=== PATIENT | female | born 1985 | race Caucasian/White ===

== ENCOUNTER 2017-11-17 09:33 | Emergency (ER) | payer MEDICAID ==
[~2017-11-17] VITALS: Ht 167.6 cm; Wt 89.8 kg
[2017-11-17 10:19] VITALS: BP 145/98
[2017-11-17 10:29] LABS: BASOPHILS % (AUTO) 0.6 % (0.0-2.0); EOSINOPHILS % (AUTO) 5.1 % (0.0-3.0); HEMATOCRIT 39.4 % (37.0-47.0); HEMOGLOBIN 13.3 G/DL (12.0-16.0); LYMPHOCYTES % (AUTO) 21.5 % (20.0-45.0); MEAN CORPUSCULAR VOLUME 87 FL (80-99); NEUTROPHILS % (AUTO) 68.8 % (45.0-75.0); PLATELET COUNT 317 K/UL (150-450); RED BLOOD COUNT 4.52 M/UL (4.20-5.40); RED CELL DISTRIBUTION WIDTH 12.7 % (11.6-14.8); WHITE BLOOD COUNT 8.5 K/UL (4.8-10.8)
[2017-11-17 10:41] LABS: APPEARANCE,URINE CLEAR; BILIRUBIN, URINE NEGATIVE (NEGATIVE); GLUCOSE, URINE (UA) NEGATIVE (NEGATIVE); KETONES,URINE NEGATIVE (NEGATIVE); LEUKOCYTE ESTERASE ,URINE 1+ (NEGATIVE); NITRITE,URINE NEGATIVE (NEGATIVE); PH,URINE 6 (4.5-8.0); PROTEIN,URINE 3+ (NEGATIVE); UROBILINOGEN,URINE NORMAL MG/DL (0.0-1.0)
--- NOTE | 2017-11-17 10:45 | Diagnostic Imaging Report ---
Indication: Shortness of breath Technique: XRAY Chest 1v Comparison: None. Findings: The cardiomediastinal silhouette is normal. The lungs are clear. There is no evidence of pleural fluid. The bones are unremarkable. Impression: Normal chest.
[2017-11-17 10:48] LABS: COLOR,URINE YELLOW
[2017-11-17 10:52] LABS: ANION GAP 5 mmol/L (5-15); BLOOD UREA NITROGEN 10 mg/dL (7-18); CALCIUM 8.6 MG/DL (8.5-10.1); CARBON DIOXIDE 30 MMOL/L (21-32); CHLORIDE 104 MMOL/L (98-107); CREATININE 0.7 MG/DL (0.55-1.30); POTASSIUM 4.5 MMOL/L (3.5-5.1); SODIUM 139 MMOL/L (136-145)
[2017-11-17 11:01] LABS: ALANINE AMINOTRANSFERASE 37 U/L (12-78); ALBUMIN 3.5 G/DL (3.4-5.0); ALBUMIN/GLOBULIN RATIO 0.9 (1.0-2.7); ALKALINE PHOSPHATASE 80 U/L (46-116); ASPARTATE AMINO TRANSFERASE 23 U/L (15-37); BILIRUBIN,TOTAL 0.2 MG/DL (0.2-1.0)
[2017-11-17] MEDS ORDERED: Vancomycin 1 GM in D5W 275 ML IVPB ONE (14:00)
[2017-11-17] MEDS ORDERED: Vancomycin 1gm inj IVPB ONE (14:39)
[2017-11-17 15:58] VITALS: BP 124/62
--- NOTE | 2017-11-17 16:20 | Emergency Room Report ---
History of Present Illness General Chief Complaint: Overdose Source: Patient Present Illness HPI The patient presents after heroin overdose. Apparently the boyfriend performed CPR on the patient for about 4 minutes before paramedics arrived. Narcan was given and the patient became responsive at that time. They state she was cyanotic and hypoxemic at the time. The patient woke up. She's states she feels flushed but denies any pain at this time. She's recently been evaluated for edema of her feet. This involved a CT angiogram when she had some shortness of breath. This was negative. Also she had an echocardiogram done with blood cultures looking for subacute bacterial endocarditis. She does know the results of that evaluation but has not been treated with antibiotics. In addition she's had noninvasive vascular studies of her legs that have been negative for DVT. This happened over several hospitalizations at different places in the [facility] including [place] and [facility]. Recently she was given a prescription of prednisone for the "swelling" in her feet. She's not taking a diuretic at this time. Because of the swelling in the right foot there is a break in the skin. She has some pain and some redness in the lower extremity there. She denies any calf tenderness. The patient admits to cocaine and meth. She does not use heroin every day. + h/o anxiety. Denies Hepatitis C or HIV. Allergies: Coded Allergies: ASPIRIN (Verified Allergy, Unknown, 11/17/17) PENICILLINS (Verified Allergy, Unknown, 11/17/17) Uncoded Allergies: EGGPLANT (Allergy, Unknown, 11/17/17) Patient History Past Medical History: see triage record Social History: Reports: smoking, alcohol use, drug use Social History Narrative with boyfriend Last Menstrual Period: 11/11/17 Now: No : 2 Para: 1 Reviewed Nursing Documentation: PMH: Agreed, PSxH: Agreed Nursing Documentation-PMH Past Medical History: No Stated History Review of Systems All Other Systems: negative except mentioned in HPI Physical Exam Vital Signs Date Time Temp Pulse Resp B/P (MAP) Pulse Ox O2 Delivery O2 Flow Rate FiO2 11/17/17 09:15 97.5 114 16 152/97 97 Room Air 97.5 Sp02 EP Interpretation: reviewed, normal General Appearance: well appearing, no apparent distress, GCS 15, obese Head: normocephalic Eyes: bilateral eye normal inspection, bilateral eye PERRL - 3 mm, bilateral eye EOMI ENT: moist mucus membranes Neck: supple Respiratory: lungs clear, normal breath sounds Cardiovascular #1: regular rate, rhythm Cardiovascular #2: 2+ radial (R) Gastrointestinal: normal inspection, normal bowel sounds, non tender, no mass, non-distended Musculoskeletal: back normal, gait/station normal, normal range of motion Neurologic: alert, oriented x3, motor strength/tone normal, DTRs symmetric, sensory intact, speech normal Psychiatric: anxious Skin: warm/dry, other - erythema R lower leg with lesion dorsum of foot Medical Decision Making Diagnostic Impression: Primary Impression: Heroin overdose Qualified Codes: T40.1X1A - Poisoning by heroin, accidental (unintentional), initial encounter Additional Impressions: Cellulitis of right leg Substance abuse Pedal edema ER Course Patient presents after heroin overdose. Differential includes aspiration, heroin excess, rhabdomyolysis, renal failure, cardiac injury. The patient has a nonfocal neurologic exam at this time therefore CT is not indicated and anoxic brain damage is excluded. The patient needs to be observed as she received Narcan make sure that she doesn't deteriorate again. To be treated with IV hydration. Evaluation with labs, EKG, CXR. EKG without injury. Chest x-ray no infiltrates. Labs with multiple substances positive on the tox a. White count is normal. Troponin negative. The patient still sleepy but has not required more Narcan. Discussion is undertaken regarding edema and also the erythema the right lower leg. This appears cellulitic at this time. There is no evidence of any calf tenderness right now. Due to the leg edema with the negative BNP congestive heart failure is a less likely. However excluding subacute bacterial endocarditis is significant. The patient was discussed with Dr. Crain at [facility] who accepted the patient in transfer. Blood cultures were done. Vancomycin was started here. The patient threatened to sign out AMA but was convinced to be transferred for further care. Laboratory Tests Test 11/17/17 10:20 11/17/17 10:24 White Blood Count 8.5 K/UL (4.8-10.8) Red Blood Count 4.52 M/UL (4.20-5.40) Hemoglobin 13.3 G/DL (12.0-16.0) Hematocrit 39.4 % (37.0-47.0) Mean Corpuscular Volume 87 FL (80-99) Mean Corpuscular Hemoglobin 29.4 PG (27.0-31.0) Mean Corpuscular Hemoglobin Concent 33.8 G/DL (32.0-36.0) Red Cell Distribution Width 12.7 % (11.6-14.8) Platelet Count 317 K/UL (150-450) Mean Platelet Volume 6.9 FL (6.5-10.1) Neutrophils (%) (Auto) 68.8 % (45.0-75.0) Lymphocytes (%) (Auto) 21.5 % (20.0-45.0) Monocytes (%) (Auto) 4.0 % (1.0-10.0) Eosinophils (%) (Auto) 5.1 % (0.0-3.0) H Basophils (%) (Auto) 0.6 % (0.0-2.0) Sodium Level 139 MMOL/L (136-145) Potassium Level 4.5 MMOL/L (3.5-5.1) Chloride Level 104 MMOL/L (98-107) Carbon Dioxide Level 30 MMOL/L (21-32) Anion Gap 5 mmol/L (5-15) Blood Urea Nitrogen 10 mg/dL (7-18) Creatinine 0.7 MG/DL (0.55-1.30) Estimate Glomerular Filtration Rate > 60 mL/min (>60) Glucose Level 107 MG/DL (74-106) H Calcium Level 8.6 MG/DL (8.5-10.1) Total Bilirubin 0.2 MG/DL (0.2-1.0) Aspartate Amino Transferase (AST) 23 U/L (15-37) Alanine Aminotransferase (ALT) 37 U/L (12-78) Alkaline Phosphatase 80 U/L (46-116) Troponin I 0.041 ng/mL (0.000-0.056) Pro-B-Type Natriuretic Peptide 8 pg/mL (0-125) Total Protein 7.5 G/DL (6.4-8.2) Albumin 3.5 G/DL (3.4-5.0) Globulin 4.0 g/dL Albumin/Globulin Ratio 0.9 (1.0-2.7) L Salicylates Level 1.6 ug/mL (2.8-20) L Acetaminophen Level < 2 MCG/ML (10-30) L Serum Alcohol < 3 mg/dL Urine Color Yellow Urine Appearance Clear Urine pH 6 (4.5-8.0) Urine Specific [place] 1.025 (1.005-1.035) Urine Protein 3+ (NEGATIVE) H Urine Glucose (UA) Negative (NEGATIVE) Urine Ketones Negative (NEGATIVE) Urine Occult Blood 2+ (NEGATIVE) H Urine Nitrite Negative (NEGATIVE) Urine Bilirubin Negative (NEGATIVE) Urine Urobilinogen Normal MG/DL (0.0-1.0) Urine Leukocyte Esterase 1+ (NEGATIVE) H Urine RBC 2-4 /HPF (0 - 2) H Urine WBC 2-4 /HPF (0 - 2) Urine Squamous Epithelial Cells Moderate /LPF (NONE/OCC) H Urine Bacteria Few /HPF (NONE) Urine HCG, Qualitative Negative Urine Opiates Screen Positive (NEGATIVE) H Urine Barbiturates Screen Negative (NEGATIVE) Phencyclidine (PCP) Screen Negative (NEGATIVE) Urine Amphetamines Screen Positive (NEGATIVE) H Urine Benzodiazepines Screen Negative (NEGATIVE) Urine Cocaine Screen Positive (NEGATIVE) H Urine Marijuana (THC) Screen Positive (NEGATIVE) H EKG Diagnostic Results Rate: tachycardiac Rhythm: NSR ST Segments: no acute changes Rhythm Strip Diag. Results EP Interpretation: yes Rhythm: no PVC's, no ectopy, other - ST Chest X-Ray Diagnostic Results Chest X-Ray Diagnostic Results : Chest X-Ray Ordered: Yes # of Views/Limited/Complete: 1 View Indication: Other EP Interpretation: Yes Interpretation: no consolidation, no effusion, no pneumothorax Impression: Other Electronically Signed by: Bon Patten MD Last Vital Signs Date Time Temp Pulse Resp B/P (MAP) Pulse Ox O2 Delivery O2 Flow Rate FiO2 11/17/17 17:04 97.5 108 19 124/62 100 Room Air 97.5 Status: improved Disposition: XFER [facility]-TRM HOSP Condition: Serious Referrals: ELIZABETH SHARIF,REFERRING (PCP) Bon Patten M.D. Nov 17, 2017 16:20
[2017-11-17 17:04] VITALS: BP 124/62
--- NOTE | 2017-11-18 16:21 | Cardiology Report ---
APPROVED REPORT EKG Measurement Heart [id number] Sinus tachycardia Otherwise normal ECG
== END 2017-11-17 17:05 | disposition short-term general hospital (02) ==
LOC: EDBD 09:33 → EMR 09:43 → EDBD 09:43 → CANBEDREQ 10:15 → EMR 17:05
DX: T40.1X1A Poisoning by heroin, accidental (unintentional), initial encounter (principal); L03.115 Cellulitis of right lower limb; R60.0 Localized edema; F11.129 Opioid abuse with intoxication, unspecified; F41.9 Anxiety disorder, unspecified; Z88.0 Allergy status to penicillin; Z88.6 Allergy status to analgesic agent; Z91.018 Allergy to other foods
CPT/HCPCS: 36415; 71045; 80053; 80307; 80329; 81003; 81025; 83880; 84484; 85025; 87040; 87181; 93005; 96361; 96374; 99285; J1940; J3370

== ENCOUNTER 2019-02-27 15:20 | Emergency (ER) | payer MEDICAID, SELFPAY ==
[~2019-02-27] VITALS: Ht 162.6 cm; Wt 65.8 kg
[2019-02-27 15:22] VITALS: BP 128/74
[2019-02-27] MEDS ORDERED: VENTOLIN HFA18 GM INH (15:24)
--- NOTE | 2019-02-27 15:29 | Emergency Room Report ---
History of Present Illness General Chief Complaint: Medical Clearance Source: Patient, Law Enforcement Present Illness HPI 33yo F p/w PD for med clearance. She has a history of asthma, but denies any SOB or other complaints at all. She reports she feels well and reports that there is nothing bothering her, but PD brought her in for medical clearance. Allergies: Coded Allergies: ASPIRIN (Verified Allergy, Unknown, 11/17/17) PENICILLINS (Verified Allergy, Unknown, 11/17/17) Uncoded Allergies: EGGPLANT (Allergy, Unknown, 11/17/17) Patient History Past Medical History: see triage record Reviewed Nursing Documentation: PMH: Agreed; PSxH: Agreed Nursing Documentation-PMH Hx Asthma: Yes Review of Systems All Other Systems: negative except mentioned in HPI Physical Exam Vital Signs Date Time Temp Pulse Resp B/P (MAP) Pulse Ox O2 Delivery O2 Flow Rate FiO2 02/27/19 15:22 98.4 78 20 128/74 (92) 97 Room Air Sp02 EP Interpretation: reviewed, normal General Appearance: no apparent distress, alert, non-toxic Head: normocephalic Eyes: bilateral eye normal inspection, bilateral eye PERRL, bilateral eye EOMI ENT: normal ENT inspection, hearing grossly normal, normal pharynx, no angioedema, normal voice, moist mucus membranes Neck: normal inspection, full range of motion, supple, supple/symm/no masses Respiratory: chest non-tender, lungs clear, normal breath sounds, chest symmetrical, palpation of chest normal Cardiovascular #1: normal peripheral pulses, regular rate, rhythm, edema - trace b/l ankle edema Cardiovascular #2: 2+ dorsalis pedis (R), 2+ dorsalis pedis (L) Gastrointestinal: normal inspection, non tender, soft, no mass, no guarding, no rebound Rectal: deferred Genitourinary: normal inspection, no CVA tenderness Musculoskeletal: back normal, gait/station normal, normal range of motion, non- tender, no calf tenderness Neurologic: alert, responsive, non destructive testing engineer III-XII nml as tested, motor strength/tone normal, sensory intact, speech normal Psychiatric: judgement/insight normal, memory normal, mood/affect normal Skin: normal color, no rash, warm/dry, normal turgor Lymphatic: no adenopathy Medical Decision Making Diagnostic Impression: Primary Impression: Medical clearance for incarceration ER Course Well-appearing, unremarkable lung examination, patient with no subjective symptoms either, will clear medically. Last Vital Signs Date Time Temp Pulse Resp B/P (MAP) Pulse Ox O2 Delivery O2 Flow Rate FiO2 02/27/19 15:22 98.4 78 20 128/74 (92) 97 Room Air Disposition: D/C TO LAW ENFORCEMENT IN [facility] Condition: Stable BERTO NOLEN M.D Feb 27, 2019 15:29
== END 2019-02-27 15:40 ==
LOC: EMR 15:39
DX: Z02.89 Encounter for other administrative examinations (principal); J45.909 Unspecified asthma, uncomplicated; Z88.0 Allergy status to penicillin; Z88.6 Allergy status to analgesic agent
CPT/HCPCS: 99281